=== PATIENT | male | born 1965 | race Caucasian/White ===

== ENCOUNTER → 2020-10-08 08:36 | Outpatient (BNVA) | payer BC, SELFPAY | PROVIDERS: Family Provider Nurse Practitioner; PCP Nurse Practitioner; Visit Provider Surgery | DX: Z01.812 Encounter for preprocedural laboratory examination (principal); Z20.822 Contact with and (suspected) exposure to COVID-19 | CPT/HCPCS: 87635 ==

== ENCOUNTER 2020-10-14 06:53 | Day surgery (SDC) | payer BC, SELFPAY ==
[2020-10-11 14:47] VITALS: BMI 27.3
[2020-10-14] VITALS (7 sets, daily range): BP systolic 89–134; BP diastolic 61–82; PULSE 59–90; RESP 13–20; TEMP 36.1–36.5; O2SAT 95–99
--- NOTE | 2020-10-14 07:13 | W.PM.OPSUD ---
Surgery/Procedure H&P Update DATE OF PROCEDURE: October 14, 2020 DATE H&P PERFORMED: 09/27/20 H&P UPDATE INFORMATION: I have reviewed H&P completed within last 30 days, I have examined patient prior to procedure and No changes to prior documentation PREOP DIAGNOSIS: Hemorrhoids PLANNED PROCEDURE: Operation Date: 10/14/20 08:45 Proposed Procedures p Hemorroidectomy 80586 K64.9(Not Applicable) - Salomón Fried MD s Colonoscopy 72892 Z12.11(Not Applicable) - Salomón Fried MD
[2020-10-14] MEDS: sodium chloride 0.9% 1,000 ML 30 ML IV (07:24)
--- NOTE | 2020-10-14 07:38 | P.ANESASSM_ITS ---
Pre-Anesthetic Assessment Pre-Anesthetic Assessment: Height/Weight: Height 1.7 m Weight 79.379 kg Temp Pulse Resp BP Pulse Ox 97.7 F 75 18 134/72 96 10/14/20 07:20 10/14/20 07:20 10/14/20 07:20 10/14/20 07:20 10/14/20 07:20 Preop Diagnosis: Hemorrhoids Proposed Procedure: Operation Date: 10/14/20 08:45 Proposed Procedures p Hemorroidectomy 92467 K64.9(Not Applicable) - Salomón Fried MD s Colonoscopy 78106 Z12.11(Not Applicable) - Salomón Fried MD Familial anesthetic complications: None Was Beta Geovanni taken within 24 hours: N/A Was Clonidine taken within 24 hours: N/A Last intake: Intake Last Liquid Date 10/13/20 Last Liquid Time 21:00 Last Solid Date 10/12/20 Social: Social History: No alcohol Comment: nicotine patches Exam: Pre-Anes Outpt Exam: alert, oriented x 3, clear to auscultation dano aterally and regular rate & rhythm Airway: Cervical ROM: WNL MP: 2 Dentition: Full Anesthetic Plan: ASA status: 1 Anesthesia: General Risk of > 500 ml blood loss (7ml/kg in children): No Meds/Allergies Current Medications: Current Medications Generic Name Dose Route Start Last Admin Trade Name Freq PRN Reason Stop Dose Admin Sodium Chloride 1,000 mls @ 30 ml s/hr 10/14/20 07:00 10/14/20 07:24 Sodium Chloride 0.9% IV 10/15/20 06:59 30 mls/hr .Q24H ASHOK Administration PFSH Anesthesia PFSH: Surgical History H/O esophagogastroduodenoscopy History of shoulder surgery Titanium Pins Family History Other Diabetes Hypertension Denies family history of Chronic kidney disease (CKD) Lung disease Cancer Stroke Social History Smoking and tobacco status: never smoked Adopted: No Household members: spouse and family Housing: House Marital status: Number of children: 3 Number of grandchildren: 1 Highest education level completed: High School Graduate service: No Current occupational status: employed Current gender identity: Male Data Anesthesia Cardiac Studies: No Data to Display
--- NOTE | 2020-10-14 09:58 | SUR.PHASEI ---
0953- PATIENT SAT 85% WITH ROOM AIR, PATIENT UNABLE TO SUPPORT AIRWAY INDEPENDENTLY. INSERTED ORAL AIRWAY, APPLIED SIMPLE MASK AT 6LPM SAT96%
--- NOTE | 2020-10-14 10:05 | SUR.PHASEI ---
1005- ORAL AIRWAY OUT, SIMPLE MASK AT 6LPM SAT 99%
[2020-10-14] MEDS: HYDROcodone-acetaminophen 5-325 mg Tablet 1 TAB PO (10:30)
--- NOTE | 2020-10-14 13:53 | PM.OP ---
Operative Report Date of procedure: October 14, 2020 Pre-op Diagnosis: 1. Screening colonoscopy 2. Grade 4 hemorrhoids Post-op Diagnosis: 1. Normal colonoscopy 2. Grade 4 hemorrhoids and right lateral and lateral: 3. Grade 1 hemorrhoids Procedure Done: 1. Colonoscopy passpointing flexure without biopsy 2. Hemorrhoidectomy x2 3. Banding of hemorrhoids Specimens removed/disposition: Hemorrhoids Surgeon: Salomón Fried Anesthesia: General Condition: stable Disposition: PACU Procedure: The patient was taken to the operating room and was placed in the left lateral position under general anesthesia. A colonoscopy was introduced and advanced up to the cecum where the ileocecal valve and the appendicular was visualized. The colon prep was fair. The colonoscope was slowly withdrawn. Cecum: Normal Ascending colon: Normal Transverse colon: Normal Descending colon: Normal Sigmoid colon: Normal Rectum:: Grade 4 hemorrhoids CON:: Grade 4 hemorrhoids The perianal area was prepped and draped in a sterile manner. Examination under anesthesia revealed grade 4 hemorrhoids in the right lateral and left lateral location. 10 cc of saline mixed with 0.5% Marcaine mixed with 10 cc of Exparel was injected for a perianal block. The hemorrhoidal tissue on the left lateral location was grasped with Allis clamps, and using energy device the hemorrhoidal tissue was excised staying superficial to the sphincter muscle up to a point superior to the dentate line. The hemorrhoidal tissue on the right lateral location was grasped with Allis clamps, and using energy device the hemorrhoidal tissue was excised staying superficial to the sphincter muscle up to a point superior to the dentate line. There was no bleeding noted. The excised specimens were sent to pathology. There was a grade 1 prominent hemorrhoid noted which was banded using a Band-Aid applicator about the dentate line. A Vaseline gauze was placed in the anal canal and the patient was transferred to recovery room in stable condition.
--- NOTE | 2020-10-14 15:46 | ANE.PACU2 ---
Inpatient post-anesthesia follow up: Airway intact: Yes Vital signs: Temperature 97 F Pulse Rate 75 Respiratory Rate 18 Blood Pressure 134/72 Pulse Oximetry 96 Oxygen Delivery Me thod Room Air Oxygen Flow Rate 6 Fraction of Inspir ed Oxygen Hydration adequate: Yes Nausea and vomiting: No Pain level: 3 Mental status: Baseline
== END 2020-10-14 10:56 | disposition home or self-care (01) ==
PROVIDERS: PCP Nurse Practitioner; Visit Provider Surgery
PROC: (CPT 45378; principal; 2020-10-14 08:45)
PROC: 0DJD8ZZ Inspection of Lower Intestinal Tract, Via Natural or Artificial Opening Endoscopic (ICD-10-PCS; CPT 45378; 2020-10-14 08:45)
DX: Z12.11 Encounter for screening for malignant neoplasm of colon (principal); K64.3 Fourth degree hemorrhoids; K64.0 First degree hemorrhoids; Z82.49 Family history of ischemic heart disease and other diseases of the circulatory system; Z83.3 Family history of diabetes mellitus
CPT/HCPCS: 45378; 46260; 88304; C9290; J0690; J1100; J1885; J2405; J2704; J3010; J3490; J7030